=== PATIENT | male | born 1965 | race Caucasian/White ===

== ENCOUNTER 2017-04-02 02:50 | Emergency (ER) | payer SELFPAY ==
[2017-04-02 02:59] VITALS: BP 156/82
[2017-04-02] MEDS ORDERED: PREDNISONE 20 MG TABLET PO ONE (03:55)
--- NOTE | 2017-04-02 04:04 | ER Document Report ---
ED General - General Chief Complaint: Rash Stated Complaint: POSSIBLE RASH Time Seen by Provider: 04/02/17 03:45 Notes: Patient is a 51-year-old male who presents with complaint of a rash that he has had for approximately 2 years but has worsened the last couple months. Is from [place] but it has appear doing work. Patient admits to being exposed to the sun regularly. He also is a an alcoholic and admits to drinking alcohol every day. He does not take any medications other than Benadryl which is been taking for the itching. Patient says he saw a care doctor in [place] 2 months ago and was given a hydrocortisone cream. He says it has not helped. He is continuing to itch and therefore is come to the ER. No fevers. No vomiting. No other associated systemic complaints. Patient does not take a multivitamin. Patient has never had these lesions biopsied. He has never seen a stencil inspector. Has any concerns for HIV and denies any history of HIV. He denies any history of immunocompromise. TRAVEL OUTSIDE OF THE [place] IN LAST 30 DAYS: No Past Medical History - Social History Smoking Status: Current Every Day Smoker Frequency of alcohol use: Heavy Drug Abuse: None Family History: Reviewed & Not Pertinent Patient has suicidal ideation: No Patient has homicidal ideation: No Renal/ Medical History: Denies: Hx Peritoneal Dialysis Review of Systems - Review of Systems Notes: My Normal Review Basic REVIEW OF SYSTEMS: CONSTITUTIONAL : Denies fever, chills, or sweats. Denies recent illness. CARDIOVASCULAR: Denies chest pain. RESPIRATORY: Denies cough, cold, or chest congestion. Denies shortness of breath, difficulty breathing, or wheezing. GASTROINTESTINAL: Denies abdominal pain. Denies nausea, vomiting, or diarrhea. Denies constipation. Last BM: SKIN: Rash NEUROLOGICAL: Denies altered mental status or loss of consciousness. Denies headache. Denies weakness or paralysis or loss of use of either side. Denies problems with gait or speech. Denies sensory or motor loss. ALL OTHER SYSTEMS REVIEWED AND NEGATIVE. Physical Exam - Vital signs Vitals: Temp Pulse Resp BP Pulse Ox 97.5 F 110 H 16 156/82 H 98 04/02/17 02:58 04/02/17 02:58 04/02/17 02:58 04/02/17 02:58 04/02/17 02:58 - Notes Notes: General Appearance: Well nourished, alert, cooperative, no acute distress, no obvious discomfort. Vitals: reviewed, See vital signs table. Head: no swelling or tenderness to the head Eyes: PERRL, EOMI, Conjuctiva clear Mouth: No decreasd moisture. No oral lesions. Throat: No tonsillar inflammation, No airway obstruction, No lymphadenopathy Neck: Supple, no neck tenderness, No thyromegaly Lungs: No wheezing, No rales, No rhonci, No accessory muscle use, good air exchange bilaterally. Heart: Normal rate, Regular rythm, No murmur, no rub Extremities: strength 5/5 in all extremities, good pulses in all extremities, no swelling or tenderness in the extremities, no edema. Skin: Patient has lesions over the trunk and extremities that are well spaced out. These lesions are small excoriations that are no more than 1 cm in length. There is no associated bullae. There is no surrounding erythema. Patient also does have some sunburn over his back. He has multiple freckles. Sunburn freckles indicate that he probably has chronic's damage from chronic exposure to the sun. Patient is scratching himself all over saying that he itches very much. He denies that the lesions are painful but says that they "burn". Neuro: speech clear, oriented x 3, normal affect, responds appropriately to questions. Course - Re-evaluation Re-evalutation: 04/02/17 06:18 I informed the patient that the exact cause of the skin lesions is not clear. He does have some scattered excoriations. He is very pruritic with only a slight burning type of associated pain. He is a chronic alcoholic. I informed him that chronic alcoholism can lead to many different disorders including those significantly to vitamin disorders. Also informed him that chronic alcoholism can lead to immune disorders that can lead to rashes as well. Also informed him that he has evidence of chronic exposure to sun and that this can lead to skin cancer. Informed him that it is extremely important he follows up with stencil inspector so that he can have skin biopsies performed to further evaluate what exactly is causing his chronic skin rash for the last 2 years. I did talk to him about cutting back on alcohol but the patient seems very reluctant to cut back on his alcohol intake. I informed him that he needs to take a multivitamin. I have him a number to the stencil inspector and told him to call the stencil inspector for a close follow-up appointment. I encouraged him to return to ER immediately if he has fevers, worsening rash, redness surrounding the lesions, or if he feels unwell. Patient agrees with plan will be discharged home. Dictation of this chart was performed using voice recognition software; therefore, there may be some unintended grammatical errors. - Vital Signs Vital signs: Temp Pulse Resp BP Pulse Ox 97.5 F 110 H 16 156/82 H 98 04/02/17 02:58 04/02/17 02:58 04/02/17 02:58 04/02/17 02:58 04/02/17 02:58 Discharge - Discharge Clinical Impression: Rash, Alcoholism Condition: Good Disposition: HOME, SELF-CARE Additional Instructions: It is very important you follow up with a stencil inspector. The exact cause of your rash is not clear. Your rash could be related to Vitamin disorder; therefore, you should take a multivitamin every day. It could also be related to skin cancer or an autoimmune disorder. It is extremely important you follow up with the [employer] so they can evaluate you and potentially boipsy your rash to better determine the exact cause. please slowly cut back on your alcohol intake. Please apply sunscreen before working outside or going out in the sun. Please return to the ER if you have fevers, worsening rash, or feel unwell. Please stop using the topical steroid and start using a non scented lotioin such as Cetaphil or Eucerin cream. A local [employer] is Dr. Prem Yadav. phone number to the office is [phone]. Prescriptions: Prednisone 10 mg PO ASDIR #42 tablet Forms: Return to Work
== END 2017-04-02 04:18 | disposition home or self-care (01) ==
LOC: ER 02:50
DX: R21 Rash and other nonspecific skin eruption (principal); F17.200 Nicotine dependence, unspecified, uncomplicated
CPT/HCPCS: 99282; J7512